=== PATIENT | female | born 1955 ===

== ENCOUNTER 2017-09-21 11:49 | Inpatient (IN) | payer SELFPAY ==
--- NOTE | 2017-09-21 12:47 | ED PDOC ---
HPI: General Adult Time Seen by Provider: 09/21/17 11:53 Chief Complaint (Nursing): Lower Extremity Problem/Injury History Per: Patient Additional Complaint(s): Pt. states 12 days ago she sustained a R ankle fracture and was seen in [facility] ED. She was immobilized, dc'd and instructed to f/u with Dr. Craig (code inspector) today. Pain has been worsening and she saw Dr. Craig today who advised to her to come to ED for further evaluation. Denies numbness, tingling. Past Medical History Reviewed: Historical Data, Nursing Documentation, Vital Signs Vital Signs: Last Vital Signs Temp 97.8 F 09/21/17 20:00 Pulse 69 09/21/17 20:00 Resp 18 09/21/17 20:00 BP 96/61 L 09/21/17 20:00 Pulse Ox 100 09/21/17 20:00 - Surgical History Surgical History: Appendectomy, Cholecystectomy - Family History Family History: States: No Known Family Hx - Home Medications Home Medications: Ambulatory Orders Medication Instructions Recorded No Known Home Med 09/21/17 - Allergies Allergies/Adverse Reactions: Allergies Allergy/AdvReac Type Severity Reaction Status Date / Time No Known Allergies Allergy Verified 09/21/17 12:24 Review of Systems ROS Statement: Except As Marked, All Systems Reviewed And Found Negative Physical Exam - Reviewed Nursing Documentation Reviewed: Yes Vital Signs Reviewed: Yes - Physical Exam Appears: Positive for: Well, Non-toxic, No Acute Distress Head Exam: Positive for: ATRAUMATIC, NORMAL INSPECTION, NORMOCEPHALIC Skin: Positive for: Normal Color, Warm. Negative for: Rash Eye Exam: Positive for: EOMI, Normal appearance, PERRL ENT: Positive for: Normal ENT Inspection Neck: Positive for: Normal, Painless ROM Cardiovascular/Chest: Positive for: Regular Rate, Rhythm Respiratory: Positive for: CNT, Normal Breath Sounds Gastrointestinal/Abdominal: Positive for: Normal Exam, Soft. Negative for: Tenderness Back: Positive for: Normal Inspection Extremity: Positive for: Other (RLE in posterior short leg splint which clean and intact; cap refill < 2 seconds; distal sensation intact) Neurologic/Psych: Positive for: Alert, Oriented - Laboratory Results Result Diagrams: 09/21/17 13:15 09/21/17 13:15 - ECG ECG: Positive for: Interpreted By Me ECG Rhythm: Positive for: Sinus Bradycardia. Negative for: ST/T Changes Rate: 58 O2 Sat by Pulse Oximetry: 99 - Radiology X-Ray: Interpreted by Me (CXR) X-Ray Interpretation: No Acute Disease - Progress ED Course And Treament: Labs, chest/ankle x-rays, ekg ordered. Pt. kept NPO. Pt evaluated by podiatry resident in ED. Case d/w Dr. Rahman, FP resident, and arrangements made for admission. Disposition - Clinical Impression Clinical Impression: Ankle fracture - Patient ED Disposition Is Patient to be Admitted: Yes - Disposition Disposition Time: 12:52 Condition: STABLE
--- NOTE | 2017-09-21 12:58 | CP.PCM.CON ---
History of Present Illness - History of Present Illness History of Present Illness: Podiatry Consult Note- Dr. Craig 61 y.o female with PMH of bilaterally hips osteopenia presents to the ED for right ankle fracture. Patient reports 12 days ago she walked out, slipped on ice , and fell. She reports twisting her ankle. Ambulance was called and she was bought to [facility] where X-rays were taken and she was told she had an right ankle fracture. In the ED, ankle reduction was attempted twice. Patient was placed in posterior splint and told to follow up in [place] clinic. Patient reports today pain 10/10 and describes the pain as a throbbing, stabbing pain to the ankle. She reports nothing to eat or drink since 7am this morning. She denies nausea, fever, shortness of breath, vomiting, or chills. PMH: osteopenia of hips PSH: appendectomy, cholecystectomy ALL: NKDA MEDS: none SH: denies smoking, drinking or illicit drug use FH: denies Interpretation [id number] Past Patient History - SURGICAL HISTORY Hx Appendectomy: Yes Hx Cholecystectomy: Yes Meds Allergies/Adverse Reactions: Allergies Allergy/AdvReac Type Severity Reaction Status Date / Time No Known Allergies Allergy Verified 09/21/17 12:24 Physical Exam - Constitutional Appears: Well, Non-toxic, No Acute Distress - Extremities Exam Additional comments: Vasc: DP and PT 2/4 bilaterally, CFT < 3 seconds x10 digits, moderate non pitting edema to the right ankle Ortho: severe pain with palpation to the medial and lateral malleolus, no pain with calf squeeze bilaterally, patient able to wiggle toes, patient unable to move ankle secondary to guarding Neuro: protective and gross sensation intact Derm: no open lesions noted to the right ankle, ecchymosis noted to the lateral and medial ankle, more medially, no blisters noted, no clinical signs of infection - Neurological Exam Neurological exam: Alert, Oriented x3 - Psychiatric Exam Psychiatric exam: Normal Affect, Normal Mood Results - Vital Signs Recent Vital Signs: Last Vital Signs Temp 97 F L 09/21/17 12:24 Pulse 71 09/21/17 12:24 Resp 18 09/21/17 12:24 BP 111/76 09/21/17 12:24 Pulse Ox 99 09/21/17 12:49 - Labs Result Diagrams: 09/21/17 13:15 09/21/17 13:15 Assessment & Plan - Assessment and Plan (Free Text) Assessment: 61 y.o female with PMHx of bilateral hips osteopenia presents to the ED for painful closed right displaced trimalleolar ankle fracture. Plan: Patient examined and evaluated Discussed plan in detail with attending Dr. Craig Charts, labs, vitals reviewed X-rays and CT from [place] X-rays taken on 09/21/17 reviewed- displaced trimalleolar fracture of right ankle Patient's requires surgical intervention at time NPO status confirmed, NPO status ordered All questions/concerns addressed No guarantees were made Pt understands all risks, benefits and complications of procedure OR notified, patient to go to the OR at 3pm pending medical clearance Please provided medical clearance- thank you EKG, Chest X-rays, CMP Recommends patient to be admitted for observation overnight Thank you for the consult. Podiatry will continue to follow
[2017-09-21 13:41] LABS: BASO % 0.5 % (0.0-2.0); EOS # 0.1 K/uL (0.0-0.7); EOS % 2.3 % (0.0-4.0); HEMOGLOBIN 13.9 g/dL (12.0-16.0); LYMPH # 1.9 K/uL (1.0-4.3); LYMPH % 37.4 % (20.0-40.0); MEAN CORPUSCULAR HEMOGLOBIN 31.3 pg (27.0-31.0); MEAN PLATELET VOLUME 10.2 fl (7.2-11.7); MONO # 0.4 K/uL (0.0-0.8); MONO % 8.6 % (0.0-10.0); NEUT # 2.6 K/uL (1.8-7.0); NEUT % 51.2 % (50.0-75.0); NRBC % 0.2 % (0.0-0.0); RBC 4.44 Mil/uL (3.80-5.20); RED CELL DISTRIBUTION WIDTH 12.5 % (11.5-14.5); WHITE BLOOD COUNT 5.1 K/uL (4.8-10.8)
[2017-09-21 13:43] LABS: ALB/GLOB RATIO 1.1 (1.0-2.1); ALBUMIN 4.4 g/dL (3.5-5.0); CALCIUM 9.8 mg/dL (8.4-10.2); GFR AFRICAN-AMERICAN > 60; GFR NON-AFRICAN AMERICAN > 60
[2017-09-21 13:46] LABS: INR 1.1 (0.9-1.2); PARTIAL THROMBOPLASTIN TIME 32.8 Seconds (25.6-37.1); PROTHROMBIN TIME 11.7 Seconds (9.8-13.1)
[2017-09-21 14:03] LABS: ALT/SGPT 208 U/L (9-52); AST/SGOT 68 U/L (14-36); BLOOD UREA NITROGEN 17 mg/dl (7-17)
--- NOTE | 2017-09-21 14:04 | CP.PCM.CON ---
Past Patient History - Past Social History Smoking Status: Never Smoked - PSYCHIATRIC Hx Substance Use: No - SURGICAL HISTORY Hx Appendectomy: Yes Hx Cholecystectomy: Yes Meds Allergies/Adverse Reactions: Allergies Allergy/AdvReac Type Severity Reaction Status Date / Time No Known Allergies Allergy Verified 09/21/17 12:24 Results - Vital Signs Recent Vital Signs: Last Vital Signs Temp 97 F L 09/21/17 12:24 Pulse 71 09/21/17 12:24 Resp 18 09/21/17 12:24 BP 111/76 09/21/17 12:24 Pulse Ox 99 09/21/17 12:52 - Labs Result Diagrams: 09/21/17 13:15 09/21/17 13:15 Labs: Laboratory Results - last 24 hr 09/21/17 09/21/17 09/21/17 13:15 13:15 13:15 WBC 5.1 RBC 4.44 Hgb 13.9 Hct 40.8 MCV 92.0 MCH 31.3 H MCHC 34.0 RDW 12.5 Plt Count 223 MPV 10.2 Neut % (Auto) 51.2 Lymph % (Auto) 37.4 [place] % (Auto) 8.6 Eos % (Auto) 2.3 Baso % (Auto) 0.5 Neut # (Auto) 2.6 Lymph # (Auto) 1.9 [place] # (Auto) 0.4 Eos # (Auto) 0.1 Baso # (Auto) 0.0 PT INR APTT Sodium 144 Potassium 4.8 Chloride 104 Carbon Dioxide 25 Anion Gap 20 BUN 17 Creatinine 0.6 L Est GFR ( Amer) > 60 Est GFR (Non-Af Amer) > 60 Random Glucose 95 Calcium 9.8 Total Bilirubin 1.1 AST 68 H ALT 208 H Alkaline Phosphatase 127 H Total Protein 8.2 Albumin 4.4 Globulin 3.8 Albumin/Globulin Ratio 1.1 Blood Type Cancelled Antibody Screen Cancelled BBK History Checked Cancelled 09/21/17 13:15 WBC RBC Hgb Hct MCV MCH MCHC RDW Plt Count MPV Neut % (Auto) Lymph % (Auto) [place] % (Auto) Eos % (Auto) Baso % (Auto) Neut # (Auto) Lymph # (Auto) [place] # (Auto) Eos # (Auto) Baso # (Auto) PT 11.7 INR 1.1 APTT 32.8 Sodium Potassium Chloride Carbon Dioxide Anion Gap BUN Creatinine Est GFR ( Amer) Est GFR (Non-Af Amer) Random Glucose Calcium Total Bilirubin AST ALT Alkaline Phosphatase Total Protein Albumin Globulin Albumin/Globulin Ratio Blood Type Antibody Screen BBK History Checked Assessment & Plan - Assessment and Plan (Free Text) Plan: Patient is medically optimized for surgery
[2017-09-21 14:44] LABS: SQUAMOUS EPITHIAL 2 /hpf (0-5); URINE BILIRUBIN NEGATIVE (NEGATIVE); URINE BLOOD NEGATIVE (NEGATIVE); URINE CLARITY SLIGHTY-CLOUDY (Clear); URINE COLOR YELLOW (YELLOW); URINE GLUCOSE (UA) NEG (Normal); URINE LEUKOCYTE ESTERASE TRACE Leu/uL (Negative); URINE PROTEIN NEGATIVE (NEGATIVE); URINE UROBILINOGEN 0.2-1.0 mg/dL (0.2-1.0)
[2017-09-21] MEDS ORDERED: ceFAZolin IV 2 gm in Dextrose 2 GM/50 ML BAG IVPB ONE (15:06)
[2017-09-21] MEDS ORDERED: Bupivacaine 0.5% Inj(30mL) ONE ×2 (15:06→15:33)
[2017-09-21] MEDS ORDERED: Lidocaine 4% (Laryng-O-Jet) Kit MM ONE (15:27)
[2017-09-21] MEDS ORDERED: Midazolam 2 MG/2 ML VIAL ONE (15:27)
[2017-09-21] MEDS ORDERED: Succinylcholine 200 mg/10 ml Inj IV ONE (15:27)
[2017-09-21] MEDS ORDERED: Propofol 10 mg/ml Inj (20 ML) ONE (15:27)
--- NOTE | 2017-09-21 15:27 | CP.PCM.HP ---
History of Present Illness - History of Present Illness History of Present Illness: 61 year old female with PMHx of osteopenia and gastritis seen in the ED complaining of right ankle pain. Patient states that twelve days ago she slipped on a patch of ice and fell, causing immediate pain to her right ankle with inability to weight bear. She went to [facility] where she was told she had a right ankle fracture. Patient presents to ED today complaining of continued pain to the area. Says she has been taking Motrin regularly and that it has not been helping. She is seen to be wearing a posterior splint that is C/D/I. She denies any weight bearing on the injured leg and her posterior splint in C/D/I. She denies any further pedal complaints at this time. Denies any recent N/V/F/C/CP/SOB/D/posterior calf pain when squeezed. Patient states that she has not eaten anything since last night and only had a small cup of coffee around 7 am this morning PMD: No family provider PMHx: Osteopenia, Gastritis Meds: Denies ALL: NKDA Psurghx: Appendectomy, cholecystectomy FamilyHx: HTN (mother) Social: Denies ETOH, Denies Tobacco use, Denies illicit drug use Present on Admission - Present on Admission Any Indicators Present on Admission: No Review of Systems - Review of Systems Review of Systems: ROS as per HPI. All other systems reviewed and found to be negative - Constitutional Constitutional: absent: Anorexia, Chills, Daytime Sleepiness, Excessive Sweating , Fatigue, Fever, Frequent Falls, Headache, Increased Appetite, Lethargy, Malaise, Night Sweats, Snoring, Sleep Apnea, Weight Gain, Weight Loss, Weakness , Other - EENT Eyes: absent: Blind Spots, Blurred Vision, Change in Vision, Decreased Night Vision, Diplopia, Discharge, Dry Eye, Exophthalmos, Floaters, Irritation, Itchy Eyes, Loss of Peripheral Vision, Pain, Photophobia, Requires Corrective Lenses, Sees Flashes, Spots in Vision, Tunnel Vision, Other Visual Disturbances, Loss of Vision, Other Ears: absent: Decreased Hearing, Ear Discharge, Ear Pain, Tinnitus, Abnormal Hearing, Disequilibrium, Dizziness, Other Nose/Mouth/Throat: absent: Epistaxis, Nasal Congestion, Nasal Discharge, Nasal Obstruction, Nasal Trauma, Nose Pain, Post Nasal Drip, Sinus Pain, Sinus Pressure, Bleeding Gums, Change in Voice, Dental Pain, Dry Mouth, Dysphagia, Halitosis, Hoarsness, Lip Swelling, Mouth Lesions, Mouth Pain, Odynophagia, Sore Throat, Throat Swelling, Tongue Swelling, Facial Pain, Neck Pain, Neck Mass , Other - Cardiovascular Cardiovascular: absent: Acrocyanosis, Chest Pain, Chest Pain at Rest, Chest Pain with Activity, Claudication, Diaphoresis, Dyspnea, Dyspnea on Exertion, Edema, Irregular Heart Rhythm, Pain Radiating to Arm/Neck/Jaw, Leg Edema, Leg Ulcers, Lightheadedness, Orthopnea, Palpitations, Paroxysmal Nocturnal Dyspnea, Pedal Edema, Radiating Pain, Rapid Heart Rate, Slow Heart Rate, Syncope, Other - Respiratory Respiratory: absent: Cough, Dyspnea, Hemoptysis, Dyspnea on Exertion, Wheezing, Snoring, Stridor, Pain on Inspiration, Chest Congestion, Excessive Mucous Production, Change in Mucous Color, Pain with Coughing, Other - Gastrointestinal Gastrointestinal: absent: Abdominal Pain, Belching, Bloating, Change in Bowel Habits, Change in Stool Character, Coffee Ground Emesis, Constipation, Cramping , Diarrhea, Dyspepsia, Dysphagia, Early Satiety, Excessive Flatus, Fecal Incontinence, Heartburn, Hematemesis, Hematochezia, Loose Stools, Melena, Nausea , Odynophagia, Temesmus, Vomiting, Other - Musculoskeletal Additional comments: POP to right ankle. Decreased range of motion secondary to guarding, right ankle - Neurological Neurological: absent: As Per HPI, Abnormal Gait, Abnormal Hearing, Abnormal Movements, Abnormal Speech, Behavioral Changes, Burning Sensations, Confusion, Convulsions, Disequilibrium, Dizziness, Numbness, Focal Weakness, Frequent Falls , Headaches, Lack of Coordination, Loss of Vision, Memory Loss, Paresthesias, Radicular Pain, Restless Legs, Sensory Deficit, Syncope, Tingling, Tremor, Vertigo, Weakness, Other Visual Disturbances, Other Past Patient History - Infectious Disease Hx of Infectious Diseases: None - Past Medical History & Family History Past Medical History?: No - Past Social History Smoking Status: Never Smoked - CARDIAC Hx Cardiac Disorders: No - PULMONARY Hx Respiratory Disorders: No - NEUROLOGICAL Hx Neurological Disorder: No - HEENT Hx HEENT Problems: No - RENAL Hx Chronic Kidney Disease: No Hx Kidney Stones: No - ENDOCRINE/METABOLIC Hx Endocrine Disorders: No - HEMATOLOGICAL/ONCOLOGICAL Hx Blood Disorders: No - INTEGUMENTARY Hx Dermatological Problems: No - MUSCULOSKELETAL/RHEUMATOLOGICAL Hx Musculoskeletal Disorders: No - GASTROINTESTINAL Hx Gastrointestinal Disorders: No - GENITOURINARY/GYNECOLOGICAL Hx Genitourinary Disorders: No - PSYCHIATRIC Hx Psychophysiologic Disorder: No Hx Emotional Abuse: No Hx Physical Abuse: No Hx Substance Use: No - SURGICAL HISTORY Hx Surgeries: No Hx Appendectomy: Yes Hx Cholecystectomy: Yes Meds Allergies/Adverse Reactions: Allergies Allergy/AdvReac Type Severity Reaction Status Date / Time No Known Allergies Allergy Verified 09/21/17 12:24 Physical Exam - Constitutional Appears: Well, Non-toxic, No Acute Distress - Head Exam Head Exam: ATRAUMATIC, NORMOCEPHALIC - Eye Exam Eye Exam: EOMI, PERRL Pupil Exam: PERRL - ENT Exam ENT Exam: Mucous Membranes Moist - Neck Exam Neck exam: Positive for: Full Rom, Normal Inspection - Respiratory Exam Respiratory Exam: Clear to Auscultation Bilateral, NORMAL BREATHING PATTERN - Cardiovascular Exam Cardiovascular Exam: REGULAR RHYTHM - GI/Abdominal Exam GI & Abdominal Exam: absent: Distended, Firm, Guarding, Rigid, Tenderness - Rectal Exam Rectal Exam: Deferred - Extremities Exam Additional comments: RLE: Trimalleolar fracture of right ankle Results - Vital Signs Recent Vital Signs: Last Vital Signs Temp 98 F 09/21/17 14:06 Pulse 75 09/21/17 14:17 Resp 15 09/21/17 14:06 BP 118/72 09/21/17 14:06 Pulse Ox 99 09/21/17 14:06 - Labs Result Diagrams: 09/21/17 13:15 09/21/17 13:15 Labs: Laboratory Results - last 24 hr 09/21/17 09/21/17 09/21/17 13:15 13:15 13:15 WBC 5.1 RBC 4.44 Hgb 13.9 Hct 40.8 MCV 92.0 MCH 31.3 H MCHC 34.0 RDW 12.5 Plt Count 223 MPV 10.2 Neut % (Auto) 51.2 Lymph % (Auto) 37.4 [place] % (Auto) 8.6 Eos % (Auto) 2.3 Baso % (Auto) 0.5 Neut # (Auto) 2.6 Lymph # (Auto) 1.9 [place] # (Auto) 0.4 Eos # (Auto) 0.1 Baso # (Auto) 0.0 PT INR APTT Sodium 144 Potassium 4.8 Chloride 104 Carbon Dioxide 25 Anion Gap 20 BUN 17 Creatinine 0.6 L Est GFR ( Amer) > 60 Est GFR (Non-Af Amer) > 60 Random Glucose 95 Calcium 9.8 Total Bilirubin 1.1 AST 68 H ALT 208 H Alkaline Phosphatase 127 H Total Protein 8.2 Albumin 4.4 Globulin 3.8 Albumin/Globulin Ratio 1.1 Urine Color Urine Clarity Urine pH Ur Specific [place] Urine Protein Urine Glucose (UA) Urine Ketones Urine Blood Urine Nitrate Urine Bilirubin Urine Urobilinogen Ur Leukocyte Esterase Urine RBC (Auto) Urine Microscopic WBC Ur Squamous Epith Cells Blood Type Cancelled Antibody Screen Cancelled BBK History Checked Cancelled 09/21/17 09/21/17 09/21/17 13:15 14:15 14:25 WBC RBC Hgb Hct MCV MCH MCHC RDW Plt Count MPV Neut % (Auto) Lymph % (Auto) [place] % (Auto) Eos % (Auto) Baso % (Auto) Neut # (Auto) Lymph # (Auto) [place] # (Auto) Eos # (Auto) Baso # (Auto) PT 11.7 INR 1.1 APTT 32.8 Sodium Potassium Chloride Carbon Dioxide Anion Gap BUN Creatinine Est GFR ( Amer) Est GFR (Non-Af Amer) Random Glucose Calcium Total Bilirubin AST ALT Alkaline Phosphatase Total Protein Albumin Globulin Albumin/Globulin Ratio Urine Color Yellow Urine Clarity Slighty-cloudy Urine pH 5.0 Ur Specific [place] 1.019 Urine Protein Negative Urine Glucose (UA) Neg Urine Ketones Negative Urine Blood Negative Urine Nitrate Negative Urine Bilirubin Negative Urine Urobilinogen 0.2-1.0 Ur Leukocyte Esterase Trace Urine RBC (Auto) 5 H Urine Microscopic WBC 2 Ur Squamous Epith Cells 2 Blood Type Antibody Screen BBK History Checked No verified bt Assessment & Plan - Assessment and Plan (Free Text) Assessment: 61 year old female with PMHx Osteopenia and Gastritis seen in ED with right ankle trimalleolar fracture Plan: 1) Right ankle fracture - Ankle xray: Trimalleolar fracture of right ankle - Chest xray: No acute infiltrates noted - EKG: Sinus bradycardia, otherwise normal EKG - Podiatry consult appreciated: Patient for ORIF this afternoon with attending Dr. Craig for R trimalleolar fracture - Vitals and labs stable - NPO diet 2) Osteopenia - Chronic - Stable - No at home medication - Monitor 3) Gastritis - Chronic - Stable - No at home medication - Monitor - Date & Time Date: 09/21/17 Time: 13:25
[2017-09-21] MEDS ORDERED: Ropivacaine 0.5% 30ML IV ONE (15:33)
[2017-09-21] MEDS ORDERED: Lactated Ringer's 1,000 ML IV ONE ×3 (15:35→20:30)
[2017-09-21] MEDS ORDERED: Sevoflurane - Inhalation Anesthetic Liq (250 ml) ONE (16:13)
[2017-09-21] MEDS ORDERED: Dexamethasone 4 mg/1 ml ONE (16:18)
--- NOTE | 2017-09-21 16:40 | RAD ---
PROCEDURE: Right Ankle Radiographs. Tissue swelling. HISTORY: Ankle fracture COMPARISON: No prior FINDINGS: BONES: Current study reveals fracture dislocation of the distal medial posterior and lateral malleoli with disruption of the ankle mortise. Surrounding soft tissue swelling JOINTS: Normal. No osteoarthritis. Ankle mortise maintained. Talar dome intact SOFT TISSUES: As above. OTHER FINDINGS: None. IMPRESSION: Fracture dislocation distal right posterior medial and lateral malleoli with disruption of the ankle mortise.
--- NOTE | 2017-09-21 16:44 | RAD ---
HISTORY: clearance COMPARISON: No prior. TECHNIQUE: Chest PA and lateral FINDINGS: LUNGS: There is a vague nodular density right lung base which may represent confluence of shadow artifact however area of localized atelectasis, scarring or parenchymal nodule not excluded. Recommend followup nonemergent CT scan of the chest. PLEURA: No significant pleural effusion identified. No pneumothorax apparent. CARDIOVASCULAR: Normal. OSSEOUS STRUCTURES: Mild multilevel degenerative spondylosis of the thoracic spine. . VISUALIZED UPPER ABDOMEN: Normal. OTHER FINDINGS: None. IMPRESSION: There is a vague nodular density right lung base which may represent confluence of shadow artifact however area of localized atelectasis, scarring or parenchymal nodule not excluded. Recommend followup nonemergent CT scan of the chest. Note that this report was placed in PA review folder for followup.
[2017-09-21] MEDS ORDERED: Labetalol 5mg/ml (4ml) ONE (17:11)
[2017-09-21] MEDS ORDERED: Enalaprilat 2.5 MG/2 ML ONE (17:20)
[2017-09-21] MEDS ORDERED: Bupivacaine 0.5% 50 ML IJ ONE (18:45)
[2017-09-21] MEDS ORDERED: Sodium Chloride 0.9% 500 ML IV ONE (19:00)
--- NOTE | 2017-09-21 19:04 | PCM.ANESB2 ---
Popliteal Nerve Block - Popliteal Nerve Block Date of Procedure: 09/21/17 Anesthesiologist: Vineet Pre-Procedure Diagnosis: Right ankle fracture Post-Procedure Diagnosis: Same Procedure Performed: Popliteal Nerve Block Right - Procedure Popliteal Nerve Block: This procedure was explained to the patient that it is for post-operative pain management. Consent was obtained after a thorough discussion with the patient regarding the benefits and possible complications of local anesthetic block of the sciatic nerve at the popliteal level. The patient was brought to the operating room and standard monitors are applied. Time-out was held with the circulating nurse to confirm the correct surgery and the appropriate block. After applying oxygen by nasal cannula and administering IV Sedation, patient's operative leg was gently raised and supported and the groove in between the biceps femoris and vastus lateralis muscles was carefully palpated. The skin approximately 8cm above the popliteal crease was then marked. The ultrasound transducer was then applied to the posterior thigh approximately 8cm above the popliteal crease in the transverse plane and the sciatic nerve before its division was visualized lateral to the popliteal artery and in between the bicep femoris and semimembranosus/semitendinosus muscles. After identification, the lateral portion of the thigh was prepped with Betadine solution three times and Lidocaine 1% was injected subcutaneously for topical anesthesia. At this point, a # 21 gauge Stimuplex insulated 4 inch needle was inserted into pre-marked area and advanced in a perpendicular direction. The needle was inserted above the ultrasound transducer in-plane towards the sciatic nerve in a [id number] direction. Needle advancement was performed carefully under direct ultrasound visualization. Nerve stimulator was used and dorsiflexion of the __right___ foot was elicited at a current of ___0.4__ MA. After repeated negative aspiration, __20___cc of __.5___ % bupivacaine was injected. Under ultrasound guidance the local anesthetics were observed surrounding sciatic nerve . The needle was removed intact and sterile dressing was applied. The patient tolerated the popliteal nerve block well with stable vital signs and was subsequently prepared for the surgery.
--- NOTE | 2017-09-21 19:04 | PCM.SURG1 ---
Surgeon's Initial Post Op Note - Surgeon's Notes Surgeon: Dr. Craig [employer] Secretary: Dr. Car, Dr. Elaine, Dr. Jones Type of Anesthesia: General Endo Anesthesia Administered By: Dr. Manley Pre-Operative Diagnosis: right ankle displaced trimalleolar fracture Operative Findings: see dictations; 2-0 vicryl, 4-0 vicryl, 4-0 nylon; internal fixation with screws and plate, .5cc of DBM, post operative injectables 10 cc of .5% marcaine plain Post-Operative Diagnosis: same Operation Performed: open reduction internal fixation of right ankle displaced trimalleolar fracture Specimen/Specimens Removed: none Estimated Blood Loss: EBL {In ML}: 20 Blood Products Given: N/A Drains Used: No Drains Post-Op Condition: Good Date of Surgery/Procedure: 09/21/17 Time of Surgery/Procedure: 15:00
[2017-09-21] MEDS ORDERED: HYDROmorphone 0.5 mg/0.5 ml ISec IVP PRN ×2 (19:05→19:13)
--- NOTE | 2017-09-21 19:05 | PCM.ANESB3 ---
Femoral Nerve Block - Femoral Nerve Block Date of Procedure: 09/21/17 Anesthesiologist: Vineet Pre-Procedure Diagnosis: Right ankle fracture Post-Procedure Diagnosis: Same Procedure Performed: Femoral Nerve Block Right - Procedure Femoral Nerve Block: The procedure was explained to the patient that it is for the post-operative pain management. Consent was obtained after a thorough discussion with the patient regarding the benefits and possible complications of local anesthetic block of the femoral nerve at the inguinal crease area. The patient was brought to the operating room and standard monitors were applied. Time-out was held with the circulating nurse to confirm the correct surgery and the appropriate block. After applying oxygen by nasal cannula and administering IV Sedation, patient was placed in supine position with fully extended lower extremities and the __right groin exposed. The femoral artery was then carefully palpated. The ultrasound transducer was then applied to this area in the transverse plane and the femoral nerve was visualized lateral to the femoral artery and underneath the fascia iliaca. After thorough identification, the inguinal crease area was prepped with Betadine solution three times and 1 % Lidocaine was injected subcutaneously for topical anesthesia. At this point, a #22 gauge Stimuplex 2-inch needle was inserted immediately lateral to the femoral artery pulse at the inguinal crease and advanced perpendicularly. The needle was inserted to the ultrasound transducer in-plane towards the femoral nerve in a [id number] direction. Needle advancement was performed carefully under direct ultrasound visualization. Nerve stimulator was used and twitch of the quadriceps muscle was obtained at current of __0.4___ MA. After negative aspiration, __20___cc of __.5___% ropivacaine ____was injected. Under ultrasound guidance the local anesthetics were observed spreading below fascia iliaca and around the femoral nerve. The needle was removed intact and sterile dressing was applied. The patient had stable vital signs, was conscious and in no apparent distress. The patient tolerated the femoral nerve block well with stable vital signs and was prepared for subsequent surgery.
[2017-09-21] MEDS ORDERED: Oxycodone/Acetaminophen 5/325 mg Tab PO PRN ×2 (19:09)
--- NOTE | 2017-09-21 19:43 | CARD ---
APPROVED REPORT EKG Measurement Heart [id number] <Conclusion> Sinus bradycardia Otherwise normal ECG
[2017-09-21 22:14] LABS: HEMOGLOBIN 12.1 g/dL (12.0-16.0); MEAN CELL VOLUME 92.4 fl (81.0-99.0); MEAN CORPUSCULAR HEMOGLOBIN 30.7 pg (27.0-31.0); MEAN CORPUSCULAR HGB CONC 33.2 g/dL (33.0-37.0); RBC 3.94 Mil/uL (3.80-5.20); RED CELL DISTRIBUTION WIDTH 12.6 % (11.5-14.5); WHITE BLOOD COUNT 8.7 K/uL (4.8-10.8)
[2017-09-22] MEDS: ceFAZolin 1 GM in Sodium Chloride 0.9% 100 ML IVPB SCH ×3 (00:20→21:35)
--- NOTE | 2017-09-22 08:00 | RAD ---
PROCEDURE: Intraoperative Fluoroscopy. HISTORY: RT. ANKLE FINDINGS: Fluoroscopic assistance was provided for open reduction internal fixation of right ankle fractures. Please refer to the operative report from [facility]. 85.9 seconds of fluoroscopy time was utilized.
--- NOTE | 2017-09-22 08:06 | RAD ---
PROCEDURE: Right Ankle Radiographs. HISTORY: s/p right ankle ORIF COMPARISON: Right ankle radiographs 09/21/2017. FINDINGS: BONES: Patient is seen to be status post open reduction internal fixation under para trimalleolar fracture via a compression plate and multiple screws at the distal right ulna, 2 screws at the posterior malleolus and solitary screw transfixing the medial malleolar fracture. JOINTS: No subluxation or dislocation apparent.. No osteoarthritis. Ankle mortise maintained. Talar dome intact SOFT TISSUES: Normal. OTHER FINDINGS: None. IMPRESSION: Status post ORIF trimalleolar fracture as discussed above. Adequate reduction appears to have been achieved.
--- NOTE | 2017-09-22 09:50 | CP.PCM.PN ---
Subjective - Date & Time of Evaluation Date of Evaluation: 09/22/17 Time of Evaluation: 09:46 - Subjective Subjective: Podiatry Progress Note- Dr. Craig 61 y.o female 1 day s/p right trimalleolar fracture ORIF is seen and evaluated at bedside. Patient is seen resting comfortably in bed, in NAD, and AAOx3. Patient reports that she is doing well. She denies acute overnight events. She reports unable to wiggle her toes. She complains of little pain to the right lower extremity. She denies nausea, fever, shortness of breath, chest pain, chills or fever. She denies calf tenderness or pain. Objective - Vital Signs/Intake and Output Vital Signs (last 24 hours): Temp Pulse Resp BP Pulse Ox 97.3 F L 63 19 94/58 L 97 09/22/17 07:39 09/22/17 07:39 09/22/17 07:39 09/22/17 07:39 09/22/17 07:39 Intake and Output: 09/22/17 09/22/17 06:59 18:59 Intake Total 750 Balance 750 - Medications Medications: Current Medications Acetaminophen (Tylenol 325mg Tab) 325 mg PO Q4 PRN PRN Reason: Pain, Mild (1-3) Enoxaparin Sodium (Lovenox) 40 mg SC DAILY JUSTIN PRN Reason: Protocol Cefazolin Sodium 1 gm/ Sodium (Chloride) 100 mls @ 100 mls/hr IVPB Q12 JUSTIN PRN Reason: Protocol Last Admin: 09/22/17 00:20 Dose: 100 mls/hr Oxycodone/Acetaminophen (Percocet 5/325 Mg Tab) 1 tab PO Q4 PRN PRN Reason: Pain, moderate (4-7) Stop: 09/24/17 19:10 Oxycodone/Acetaminophen (Percocet 5/325 Mg Tab) 2 tab PO Q4 PRN PRN Reason: Pain, severe (8-10) Stop: 09/24/17 19:10 - Labs Labs: 09/21/17 21:40 09/21/17 13:15 PT 11.7 Seconds (9.8-13.1) 09/21/17 13:15 INR 1.1 (0.9-1.2) 09/21/17 13:15 APTT 32.8 Seconds (25.6-37.1) 09/21/17 13:15 - Constitutional Appears: Well, Non-toxic, No Acute Distress - Extremities Exam Extremities Exam: absent: Calf Tenderness Additional comments: Dressing to the right lower extremity is clean, dry, and intact. No strike- through noted to dressing Patient unable to wiggle toes secondary to femoral and popliteal block Temperature gradient WNL CFT < 3 seconds to the digits - Neurological Exam Neurological Exam: Alert, Awake, Oriented x3 - Psychiatric Exam Psychiatric exam: Normal Affect, Normal Mood Assessment and Plan - Assessment and Plan (Free Text) Assessment: 61 y.o female 1 day s/p right trimalleolar fracture ORIF Plan: Patient examined and evaluated Discussed plan in detail with attending Dr. Craig Charts, labs, vitals reviewed PT eval and treatment appreciated- Pt to be NWB to the right LE with crutches Patient stable per podiatry standpoint Upon discharge, -Patient will follow up in podiatry clinic Thursday with Dr. Craig -Patient will need to call for an appointment -Keep the posterior splint clean, dry, and intact. Do not get wet. -Nonweightbearing to the right leg. Use crutches to ambulate -Rx Keflex, take as instructed -Rx Percocet 5/325 for moderate-severe pain
--- NOTE | 2017-09-22 10:15 | CP.PCM.DIS ---
Provider - Provider Date of Admission: 09/21/17 13:01 Attending physician: Mary Syed MD Primary care physician: No Family Provider Consults: Podiatry - Dr. Craig Time Spent in preparation of Discharge (in minutes): 45 Diagnosis - Discharge Diagnosis (1) Status post ORIF of fracture of ankle Status: Acute Comment: 61F with ORIF for trimalleolar fracture by podiatry on 09/22/17 without complication. Pain controlled. Cleared for DC home by PT and Podiatry Hospital Course - Lab Results Lab Results: Most Recent Lab Values WBC 8.7 K/uL (4.8-10.8) D 09/21/17 21:40 RBC 3.94 Mil/uL (3.80-5.20) 09/21/17 21:40 Hgb 12.1 g/dL (12.0-16.0) 09/21/17 21:40 Hct 36.4 % (34.0-47.0) 09/21/17 21:40 MCV 92.4 fl (81.0-99.0) 09/21/17 21:40 MCH 30.7 pg (27.0-31.0) 09/21/17 21:40 MCHC 33.2 g/dL (33.0-37.0) 09/21/17 21:40 RDW 12.6 % (11.5-14.5) 09/21/17 21:40 Plt Count 173 K/uL (130-400) 09/21/17 21:40 MPV 10.2 fl (7.2-11.7) 09/21/17 13:15 Neut % (Auto) 51.2 % (50.0-75.0) 09/21/17 13:15 Lymph % (Auto) 37.4 % (20.0-40.0) 09/21/17 13:15 [place] % (Auto) 8.6 % (0.0-10.0) 09/21/17 13:15 Eos % (Auto) 2.3 % (0.0-4.0) 09/21/17 13:15 Baso % (Auto) 0.5 % (0.0-2.0) 09/21/17 13:15 Neut # (Auto) 2.6 K/uL (1.8-7.0) 09/21/17 13:15 Lymph # (Auto) 1.9 K/uL (1.0-4.3) 09/21/17 13:15 [place] # (Auto) 0.4 K/uL (0.0-0.8) 09/21/17 13:15 Eos # (Auto) 0.1 K/uL (0.0-0.7) 09/21/17 13:15 Baso # (Auto) 0.0 K/uL (0.0-0.2) 09/21/17 13:15 PT 11.7 Seconds (9.8-13.1) 09/21/17 13:15 INR 1.1 (0.9-1.2) 09/21/17 13:15 APTT 32.8 Seconds (25.6-37.1) 09/21/17 13:15 Sodium 144 mmol/l (132-148) 09/21/17 13:15 Potassium 4.8 MMOL/L (3.6-5.0) 09/21/17 13:15 Chloride 104 mmol/L (98-107) 09/21/17 13:15 Carbon Dioxide 25 mmol/L (22-30) 09/21/17 13:15 Anion Gap 20 (10-20) 09/21/17 13:15 BUN 17 mg/dl (7-17) 09/21/17 13:15 Creatinine 0.6 mg/dl (0.7-1.2) L 09/21/17 13:15 Est GFR ( Amer) > 60 09/21/17 13:15 Est GFR (Non-Af Amer) > 60 09/21/17 13:15 Random Glucose 95 mg/dL (65-105) 09/21/17 13:15 Calcium 9.8 mg/dL (8.4-10.2) 09/21/17 13:15 Total Bilirubin 1.1 mg/dl (0.2-1.3) 09/21/17 13:15 AST 68 U/L (14-36) H 09/21/17 13:15 ALT 208 U/L (9-52) H 09/21/17 13:15 Alkaline Phosphatase 127 U/L (38-126) H 09/21/17 13:15 Total Protein 8.2 G/DL (6.3-8.2) 09/21/17 13:15 Albumin 4.4 g/dL (3.5-5.0) 09/21/17 13:15 Globulin 3.8 gm/dL (2.2-3.9) 09/21/17 13:15 Albumin/Globulin Ratio 1.1 (1.0-2.1) 09/21/17 13:15 Urine Color Yellow (YELLOW) 09/21/17 14:25 Urine Clarity Slighty-cloudy (Clear) 09/21/17 14:25 Urine pH 5.0 (5.0-8.0) 09/21/17 14:25 Ur Specific [place] 1.019 (1.003-1.030) 09/21/17 14:25 Urine Protein Negative mg/dL (NEGATIVE) 09/21/17 14:25 Urine Glucose (UA) Neg mg/dL (Normal) 09/21/17 14:25 Urine Ketones Negative mg/dL (NEGATIVE) 09/21/17 14:25 Urine Blood Negative (NEGATIVE) 09/21/17 14:25 Urine Nitrate Negative (NEGATIVE) 09/21/17 14:25 Urine Bilirubin Negative (NEGATIVE) 09/21/17 14:25 Urine Urobilinogen 0.2-1.0 mg/dL (0.2-1.0) 09/21/17 14:25 Ur Leukocyte Esterase Trace Oz/uL (Negative) 09/21/17 14:25 Urine RBC (Auto) 5 /hpf (0-3) H 09/21/17 14:25 Urine Microscopic WBC 2 /hpf (0-5) 09/21/17 14:25 Ur Squamous Epith Cells 2 /hpf (0-5) 09/21/17 14:25 Blood Type A POSITIVE 09/21/17 14:15 Antibody Screen Negative 09/21/17 14:15 BBK History Checked No verified bt 09/21/17 14:15 - Hospital Course Hospital Course: 61F with PMH osteopenia, chronic gastritis presented to ED on 09/21/17 complaining of trimalleolar ankle fracture x 12 days, diagnosed in [facility] ED. Ankle xray performed at [facility] confirmed diagnosis. Podiatry was consulted (Dr. Craig) and patient was brought to OR for ORIF of fracture sites without incident and given one dose of Ancef 1 g preop. Patient was given popliteal block, femoral block and saphenous block post op. Pain management with Percocet and Dilaudid. Given Senekot and Miralax for post-operative constipation. Patient for DC today per Podiatry and PT. Patient will follow up with Podiatry in Clinic on Thursday 09/28. llamar a cirugano para hacer cristhian dentro 7-10 hernandez Tienes mervat cristhian con la clinica de Family Medicine 09/29/17 al 3:20 pm [place] - Date & Time of H&P Date of H&P: 09/24/17 Time of H&P: 09:50 Discharge Exam - Head Exam Head Exam: ATRAUMATIC, NORMAL INSPECTION, NORMOCEPHALIC - Eye Exam Eye Exam: EOMI, PERRL Pupil Exam: PERRL - ENT Exam ENT Exam: Mucous Membranes Moist - Respiratory Exam Respiratory Exam: NORMAL BREATHING PATTERN, UNREMARKABLE - Cardiovascular Exam Cardiovascular Exam: REGULAR RHYTHM - GI/Abdominal Exam GI & Abdominal Exam: absent: Distended, Firm, Guarding, Rigid, Tenderness - Rectal Exam Rectal Exam: Deferred - Neurological Exam Neurological exam: Alert, Oriented x3 - Psychiatric Exam Psychiatric exam: Normal Affect, Normal Mood - Skin Skin Exam: Intact, Normal Color, Warm Discharge Plan - Follow Up Plan Condition: STABLE Disposition: HOME/ ROUTINE Instructions: Ankle Fracture (DC), Open Reduction and Internal Fixation Surgery (DC) Additional Instructions: llamar a cirugano para hacer cristhian dentro 7-10 hernandez Referrals: Broderick Craig DPM [Staff Provider] - [facility] [Outside] - 09/29/17 3:20 pm
[2017-09-22] MEDS: Enoxaparin 40 mg Syringe SC SCH (10:49)
--- NOTE | 2017-09-22 17:53 | CP.PCM.PN ---
Subjective - Date & Time of Evaluation Date of Evaluation: 09/22/17 Time of Evaluation: 17:50 - Subjective Subjective: 61 year old female with PMHx of osteopenia and gastritis seen at bedside one day s/p right ankle ORIF for trimalleolar fracture. Patient is AAO x 3 and NAD and states that she is in severe pain now that her popliteal block and femoral block have worn off, rating the pain at 10/10. Patient denies any acute overnight events. She denies any further complaints at this time. Denies any recent N/V/F/C/CP/SOB/D/posterior calf pain when squeezed. Objective - Vital Signs/Intake and Output Vital Signs (last 24 hours): Temp Pulse Resp BP Pulse Ox 98.2 F 91 H 19 117/75 97 09/22/17 15:54 09/22/17 15:54 09/22/17 15:54 09/22/17 15:54 09/22/17 15:54 Intake and Output: 09/22/17 09/22/17 06:59 18:59 Intake Total 750 Balance 750 - Medications Medications: Current Medications Acetaminophen (Tylenol 325mg Tab) 325 mg PO Q4 PRN PRN Reason: Pain, Mild (1-3) Enoxaparin Sodium (Lovenox) 40 mg SC DAILY JUSTIN PRN Reason: Protocol Last Admin: 09/22/17 10:49 Dose: 40 mg Hydromorphone HCl (Dilaudid) 0.5 mg IVP Q4 PRN PRN Reason: Pain, severe (8-10) Cefazolin Sodium 1 gm/ Sodium (Chloride) 100 mls @ 100 mls/hr IVPB Q12 JUSTIN PRN Reason: Protocol Last Admin: 09/22/17 10:46 Dose: 100 mls/hr Oxycodone/Acetaminophen (Percocet 5/325 Mg Tab) 1 tab PO Q4 PRN PRN Reason: Pain, moderate (4-7) Stop: 09/24/17 19:10 Last Admin: 09/22/17 14:08 Dose: 1 tab - Labs Labs: 09/21/17 21:40 09/21/17 13:15 PT 11.7 Seconds (9.8-13.1) 09/21/17 13:15 INR 1.1 (0.9-1.2) 09/21/17 13:15 APTT 32.8 Seconds (25.6-37.1) 09/21/17 13:15 - Constitutional Appears: Well, Non-toxic, In Acute Distress - Head Exam Head Exam: ATRAUMATIC, NORMOCEPHALIC - Eye Exam Eye Exam: EOMI, PERRL Pupil Exam: PERRL - ENT Exam ENT Exam: Mucous Membranes Moist - Respiratory Exam Respiratory Exam: Clear to Ausculation Bilateral, NORMAL BREATHING PATTERN - Cardiovascular Exam Cardiovascular Exam: REGULAR RHYTHM - GI/Abdominal Exam GI & Abdominal Exam: absent: Firm, Guarding, Rigid, Tenderness - Rectal Exam Rectal Exam: Deferred - Extremities Exam Extremities Exam: Normal Capillary Refill, Normal Inspection. absent: Calf Tenderness Additional comments: CFT to all digits on operative side < 3 seconds Skin temperature warm Patient able to wiggle all five toes Epicritic and protective sensation grossly intact - Neurological Exam Neurological Exam: Alert, Awake, Oriented x3 - Psychiatric Exam Psychiatric exam: Normal Affect, Normal Mood - Skin Skin Exam: Normal Color, Warm Assessment and Plan - Assessment and Plan (Free Text) Assessment: 61 year old female seen one day s/p ORIF of right ankle. Pt not cleared by podiatry or PT to go home until tomorrow if pain is resolved Plan: 1) Right ankle fracture- one day s/p ORIF - Per podiatry patient's pain level is too severe for her to be safely discharged home until tomorrow if it resides - Patient refused pt due to pain - reevaluation tomorrow morning - Pain management per Podiatry - Post operative xray: Normal postoperative changes - Vitals and labs stable 2) Osteopenia - Chronic - Stable - No at home medication - Monitor 3) Gastritis - Chronic - Stable - No at home medication - Monitor 4) Diet - Regular diet 5) DVT prophylaxis - Lovenox 40 mg SC daily - SCD
[2017-09-23] MEDS: Oxycodone/Acetaminophen 5/325 mg Tab PO PRN ×2 (05:58→12:25)
--- NOTE | 2017-09-23 07:58 | CP.PCM.PN ---
Subjective - Date & Time of Evaluation Date of Evaluation: 09/23/17 Time of Evaluation: 08:26 - Subjective Subjective: Podiatry Progress Note- Dr. Craig 61 y.o female 2 days s/p right trimalleolar fracture ORIF is seen and evaluated at bedside. Patient is seen resting comfortably in bed, in NAD, and AAOx3. Patient reports that today she is feeling much better. She reports intense pain last night but reports today pain is better. She rates her pain as a 6/10 and describes the pain as a throbbing pain. She points to the pain being along the medial and lateral ankle. Reports she is able to wiggle her toes and feel sensation. She denies nausea, fever, shortness of breath, chest pain, chills or fever. She denies calf tenderness or pain. Objective - Vital Signs/Intake and Output Vital Signs (last 24 hours): Temp Pulse Resp BP Pulse Ox 98.5 F 67 19 104/61 95 09/23/17 07:44 09/23/17 07:44 09/23/17 07:44 09/23/17 07:44 09/23/17 07:44 - Medications Medications: Current Medications Acetaminophen (Tylenol 325mg Tab) 325 mg PO Q4 PRN PRN Reason: Pain, Mild (1-3) Enoxaparin Sodium (Lovenox) 40 mg SC DAILY JUSTIN PRN Reason: Protocol Last Admin: 09/22/17 10:49 Dose: 40 mg Hydromorphone HCl (Dilaudid) 0.5 mg IVP Q4 PRN PRN Reason: Pain, severe (8-10) Oxycodone/Acetaminophen (Percocet 5/325 Mg Tab) 2 tab PO Q4 PRN PRN Reason: Pain, moderate (4-7) Stop: 09/24/17 19:10 Last Admin: 09/23/17 05:58 Dose: 2 tab - Labs Labs: 09/21/17 21:40 09/21/17 13:15 PT 11.7 Seconds (9.8-13.1) 09/21/17 13:15 INR 1.1 (0.9-1.2) 09/21/17 13:15 APTT 32.8 Seconds (25.6-37.1) 09/21/17 13:15 - Constitutional Appears: Well, Non-toxic, No Acute Distress - Extremities Exam Extremities Exam: absent: Calf Tenderness Additional comments: Dressing to the right lower extremity is clean, dry, and intact. No strike- through noted to dressing Patient able to wiggle toes and able to feel sensation with touch Gross and protective sensation intact Temperature gradient WNL CFT < 3 seconds to the digits, color WNL No calf pain or tenderness with calf squeeze Pain with palpation along lateral distal fibular and distal tibial - Neurological Exam Neurological Exam: Alert, Awake, Oriented x3 - Psychiatric Exam Psychiatric exam: Normal Affect, Normal Mood Assessment and Plan - Assessment and Plan (Free Text) Assessment: 61 y.o female 2 days s/p right trimalleolar fracture ORIF Plan: Patient examined and evaluated Discussed plan in detail with attending Dr. Craig Charts, labs, vitals reviewed PT eval and treatment appreciated- Pt to be NWB to the right LE with crutches Patient stable per podiatry standpoint for discharge Continue to ice and elevate Upon discharge, -Patient will follow up in podiatry clinic Thursday with Dr. Craig -Patient will need to call for an appointment -Keep the posterior splint clean, dry, and intact. Do not get wet. -Educated RICE protocol -Nonweightbearing to the right leg. Use crutches to ambulate -Rx Keflex, take as instructed -Rx Percocet 5/325 for moderate-severe pain -Instructed to take baby aspirin 81mg for 5 days -Patient reports understanding
[2017-09-23] MEDS: Enoxaparin 40 mg Syringe SC SCH (10:01)
--- NOTE | 2017-09-23 12:17 | CP.PCM.PN ---
Subjective - Date & Time of Evaluation Date of Evaluation: 09/23/17 Time of Evaluation: 07:10 - Subjective Subjective: Pt seen and evaluated at bedside this am; POD 2 after right ankle ORIF for trimalleolar fracture. Reports that last night she had severe pain and was unable to work with PT. Overnight, pain was more controlled with pain medication. Denies chest pain, difficulty breathing, abdominal pain, GI upset, calf/leg pain. Objective - Vital Signs/Intake and Output Vital Signs (last 24 hours): Temp Pulse Resp BP Pulse Ox 98.5 F 67 19 104/61 95 09/23/17 07:44 09/23/17 07:44 09/23/17 07:44 09/23/17 07:44 09/23/17 07:44 - Medications Medications: Current Medications Acetaminophen (Tylenol 325mg Tab) 325 mg PO Q4 PRN PRN Reason: Pain, Mild (1-3) Enoxaparin Sodium (Lovenox) 40 mg SC DAILY JUSTIN PRN Reason: Protocol Last Admin: 09/23/17 10:01 Dose: 40 mg Hydromorphone HCl (Dilaudid) 0.5 mg IVP Q4 PRN PRN Reason: Pain, severe (8-10) Oxycodone/Acetaminophen (Percocet 5/325 Mg Tab) 2 tab PO Q4 PRN PRN Reason: Pain, moderate (4-7) Stop: 09/24/17 19:10 Last Admin: 09/23/17 05:58 Dose: 2 tab - Labs Labs: 09/21/17 21:40 09/21/17 13:15 PT 11.7 Seconds (9.8-13.1) 09/21/17 13:15 INR 1.1 (0.9-1.2) 09/21/17 13:15 APTT 32.8 Seconds (25.6-37.1) 09/21/17 13:15 - Constitutional Appears: Non-toxic, No Acute Distress - Head Exam Head Exam: ATRAUMATIC - Eye Exam Eye Exam: Normal appearance - ENT Exam ENT Exam: Mucous Membranes Moist - Respiratory Exam Respiratory Exam: Clear to Ausculation Bilateral, NORMAL BREATHING PATTERN. absent: Respiratory Distress - Cardiovascular Exam Cardiovascular Exam: REGULAR RHYTHM, +S1, +S2 - GI/Abdominal Exam GI & Abdominal Exam: Soft, Normal Bowel Sounds. absent: Tenderness - Extremities Exam Extremities Exam: Normal Capillary Refill. absent: Calf Tenderness, Pedal Edema Additional comments: RLE in posterior splint Sensation intact bilaterally Pt is able to wiggle all toes on RLE - Neurological Exam Neurological Exam: Alert, Awake Assessment and Plan - Assessment and Plan (Free Text) Assessment: 61 y/o F, POD 2 after ORIF of right ankle; needs PT. Plan: # ORIF of right ankle fracture- POD 2 - Yesterday pt refused pt due to pain - PT today - Pain management per podiatry - Post operative xray: Normal postoperative changes - Vitals and labs stable # Diet - Regular diet # DVT prophylaxis - Lovenox 40 mg SC daily - SCD
[2017-09-23] MEDS ORDERED: Iohexol 300 100 ML IJ ONE (16:07)
--- NOTE | 2017-09-23 17:20 | CT ---
PROCEDURE: CT Chest without contrast HISTORY: correlation to CXR read on admission COMPARISON: None. TECHNIQUE: Contiguous axial images were obtained through the chest without intravenous contrast enhancement. Sagittal and coronal reconstructions were performed. Radiation dose (DLP): 484.84 mGy-cm. This CT exam was performed using one or more of the following dose reduction techniques: Automated exposure control, adjustment of the mA and/or kV according to patient size, and/or use of iterative reconstruction technique. FINDINGS: LUNGS: No pulmonary infiltrate. Linear scar/ atelectasis in left lower lobe. No pulmonary mass identified. MEDIASTINUM: Unremarkable thoracic aorta. No aneurysm. Normal sized heart. Main pulmonary artery unremarkable. No vascular congestion. No lymphadenopathy. PLEURA: No pleural fluid. No pneumothorax. BONES: No fracture. No destructive lesion. UPPER ABDOMEN: Status post cholecystectomy OTHER FINDINGS: None. IMPRESSION: No pulmonary mass. The nodular opacity seen on plain chest radiography of 09/21/2017 was likely artifactual. Otherwise unremarkable. .
[2017-09-23] MEDS ORDERED: Docusate-Senna 50 mg-8.6 mg Tab PO ONE (19:07)
[2017-09-24 00:05] VITALS: O2SAT 95
[2017-09-24] MEDS ORDERED: POLYETHYLENE GLYCOL 3350 17 GM/Dose PACKET PO ONE (07:37)
[2017-09-24 08:14] VITALS: BP 96/61; PULSE 69; RESP 20; TEMP 98
[2017-09-24] MEDS: Enoxaparin 40 mg Syringe SC SCH (09:20)
--- NOTE | 2017-09-24 09:26 | CP.PCM.PN ---
Subjective - Date & Time of Evaluation Date of Evaluation: 09/24/17 Time of Evaluation: 08:30 - Subjective Subjective: Podiatry Progress Note- Dr. Craig 61 y.o female 3 days s/p right trimalleolar fracture ORIF is seen and evaluated at bedside. Patient is seen resting comfortably in bed, enjoying breakfast in the AM, appears in NAD, and AAOx3. Patient reports that today she is feeling much better. She says her pain comes and go. Right now her pain is 5/10. She points to the pain being along the medial and lateral ankle. Reports she is able to wiggle her toes and feel sensation. She denies nausea, shortness of breath, chest pain, chills or fever. She denies calf tenderness or pain. No new pedal complaints today. Objective - Vital Signs/Intake and Output Vital Signs (last 24 hours): Temp Pulse Resp BP Pulse Ox 98.0 F 69 20 96/61 L 95 09/24/17 08:13 09/24/17 08:13 09/24/17 08:13 09/24/17 08:13 09/24/17 08:13 - Medications Medications: Current Medications Acetaminophen (Tylenol 325mg Tab) 325 mg PO Q4 PRN PRN Reason: Pain, Mild (1-3) Enoxaparin Sodium (Lovenox) 40 mg SC DAILY JUSTIN PRN Reason: Protocol Last Admin: 09/24/17 09:20 Dose: 40 mg Oxycodone/Acetaminophen (Percocet 5/325 Mg Tab) 2 tab PO Q4 PRN PRN Reason: Pain, moderate (4-7) Stop: 09/24/17 19:10 Last Admin: 09/23/17 12:25 Dose: 2 tab - Labs Labs: 09/21/17 21:40 09/21/17 13:15 PT 11.7 Seconds (9.8-13.1) 09/21/17 13:15 INR 1.1 (0.9-1.2) 09/21/17 13:15 APTT 32.8 Seconds (25.6-37.1) 09/21/17 13:15 - Constitutional Appears: Well, Non-toxic, No Acute Distress - Extremities Exam Extremities Exam: absent: Calf Tenderness Additional comments: Vasc: DP and PT 2/4 bilaterally, CFT < 3 seconds x10 digits, moderate non pitting edema to the right ankle and foot, temperature gradient warm to warm from proximal knees to distal toes Ortho: moderate pain with palpation to right ankle, no pain with calf squeeze bilaterally, patient able to wiggle toes Neuro: protective and gross sensation intact Derm: ecchymosis noted to the dorsum of the foot, three surgical incisions located at medial malleolus, lateral malleolus, and anterior ankle with skin well co-apted and well approximately with sutures intact, with no knot slippage appreciated, no dehiscence noted, no drainage, mild erythema noted surrounding surgical site, no fluctuance, no purulence, no odor or clinical signs of infection noted; : Assessment and Plan - Assessment and Plan (Free Text) Assessment: 61 y.o female 3 days s/p right trimalleolar fracture ORIF- stable Plan: Patient examined and evaluated Discussed plan in detail with attending Dr. Craig Charts, labs, vitals reviewed Posterior splint and dressing changed; cleansed surgical site with saline solution, dressed surgical incisions with xeroform, dsd, and kerlix. Place Modified [place] with posterior splint. PT eval and treatment appreciated- Pt to be NWB to the right LE with crutches Continue to ice and elevate Patient stable per podiatry standpoint for discharge Upon discharge, -Patient will follow up in podiatry clinic Thursday with Dr. Craig -Patient will need to call for an appointment -Keep the posterior splint clean, dry, and intact. Do not get wet. -Educated RICE protocol -Nonweightbearing to the right leg. Use crutches to ambulate -Rx Keflex, take as instructed -Rx Percocet 5/325 for moderate-severe pain -Instructed to take baby aspirin 81mg for 5 days -Patient reports understanding
[2017-09-24] MEDS: Oxycodone/Acetaminophen 5/325 mg Tab PO PRN (11:53)
--- NOTE | 2017-09-25 23:55 | PCM.OP ---
Operative Report - Operative Report Date of Surgery/Procedure: 09/21/17 Time of Surgery/Procedure: 15:30 Surgeon: Dr. Craig Business Practices Officer: Mauricio Car PGY-3, Maximo Elaine PGY-3, Jayce Jones PGY-3 Anesthesia/Sedation: Gen LMA and Regional block Pre-Operative Diagnosis: Right ankle Trimalleolar fracture Post-Operative Diagnosis: Same Indication for Surgery: Indications: The patient is a 61 year-old F with the above diagnoses. The patient injured her right ankle 2 weeks ago and patient requests surgical intervention. The patient signed the consent after careful explanation of risks, benefits, complication and alternatives for surgical procedure. No guarantees were given nor implied. 2 grams Ancef IV were given to the pt hour prior to the procedure. NPO status was confirmed prior to taking pt to the OR. Operative Findings: Preparation: The patient was brought to the operating room and placed on the operating room table in supine position. A well-padded pneumatic Thigh tourniquet was placed to the patient's right Thigh. Once general anesthesia was achieved, the right lower extremity was then prepped and draped in usual sterile manner. Eshmarch was utilized to exsanguinate the patient's right lower extremity. Pneumatic Thigh tourniquet was then inflated to 350 mmHg and procedure began. Procedure/Operation Description: Attention was directed to the lateral aspect of right ankle and the fracture site was confirmed under the intra-operative fluoroscopy and spiral oblique fracture was confirmed. An approximately 7 cm linear longitudinal incision was made overlying fibular staying central right over the bone. At this time, the incision was carried deep using sharp and blunt dissection, taking care to retract all vital neurovascular structures. All bleeders were cauterized and ligated as necessary. At the level of the periosteum, a sharp periosteal incision was made overlying the distal fibula to allow exposure to the fracture site. The periosteum was reflected with a sharp preosteal elevator to allow for visualization of the fracture site at this time. At this time, Utilizing 2 bone clamps, the fracture site was reduced brining the distal fibula back out to length. At this time, two lag screws were placed from meagan-proximal to postero-distal with excellent fixation noted utilizing 2.7 x 16mm cortex screws. At this time, a Synthes 7 hole 3.5 mm LCP 1/ 3 tubular plate was placed over the fracture site and utilizing standard AO techniques and principles, holes were filled with two of 3.5 x 10 mm locking screws, 3.5 x 14 mm cortex screw, two of 3.5 x 12mm locking screws, and 3.5 x 14mm locking screw. At this time, multiple irrigations were performed. All the screw locations were confirmed under the intra operative fluoroscopy. At this time, 0.5 cc of DBM was applied to the deficit at the meagan-lateral aspect of the distal fibular. Attention was re-directed to the medial aspect of the distal tibia of the right lower extremity. Utilizing #15 blade, an approximately 4 cm curved linear incision was made overlying the tibia staying center right over the bone. At this time, the incision was carried deep using sharp and blunt dissection, taking care to retract all vital neurovascular structures. All bleeders were cauterized and ligated as necessary. At the level of the periosteum, a sharp periosteal incision was made overlying the distal tibia to allow exposure to the fracture site. The periosteum was reflected with a sharp preosteal elevator to allow for visualization of the fracture site at this time. At this time, Utilizing bone clamp, the fracture site was reduced brining the distal medial malleolus back out to length and was temporary fixated with a k wire. Next, based on AO technique and principles, the fracture site was fixed with two of 4.0 x 40mm cannulated screw. Next temporary fixated k wire was removed. The screw locations were confirmed under intraoperative fluoroscopy. The surgical site was irrigated with copious amount of normal sterile saline. Next, Utilizing #15 blade, approximately 2 cm linear longitudinal incision was made on the meagan-lateral aspect of the distal tibia and 0.5 cm above the ankle joint. Utilizing bone hook, posterior malleolar fracture was reduced at this time, two of k wires were inserted and fixated the fracture fragment temporally. Next, based on AO technique and principles, the fracture site was fixed with a 4.0 x 34mm and 38mm cannulated screws. Next temporary fixated k wires were removed. The screw locations were confirmed under intraoperative fluoroscopy. The surgical site was irrigated with copious amount of normal sterile saline. Deep tissues were reapproximated with #2-0 and #4-0 size vicryl and Skin was reapproximated with #4-0 Nylon. The surgical site was dressed with Xeroform, 4x4s, Kerlix. Posterior splint with cast pads were applied to the left lower extremity. The attending was present during the case. Estimated Blood Loss: 10cc Complications: None Discharge & Condition: The patient tolerated the anesthesia and procedure well and was escorted to the recovery room with vital signs stable and neurovascular status intact to the right ankle. This patient will follow up with
== END 2017-09-24 15:55 | disposition home or self-care (01) | DRG 219 ==
LOC: H.ER 11:49 → H.ERHOLD 13:01 → H.MEDSURG1 22:42
PROVIDERS: ADMIT Family Medicine Geriatric Medicine; ATTEND Family Medicine Geriatric Medicine
PROC: 3E0T33Z Introduction of Anti-inflammatory into Peripheral Nerves and Plexi, Percutaneous Approach (ICD-10-PCS; 2017-09-21)
PROC: 0QHJ04Z Insertion of Internal Fixation Device into Right Fibula, Open Approach (ICD-10-PCS; principal; 2017-09-21 15:30)
PROC: 0QHG04Z Insertion of Internal Fixation Device into Right Tibia, Open Approach (ICD-10-PCS; 2017-09-21 15:30)
PROC: 3E0T3BZ Introduction of Anesthetic Agent into Peripheral Nerves and Plexi, Percutaneous Approach (ICD-10-PCS; 2017-09-21 15:30)
DX: S82.851A Displaced trimalleolar fracture of right lower leg, initial encounter for closed fracture (principal); K29.50 Unspecified chronic gastritis without bleeding; M85.862 Other specified disorders of bone density and structure, left lower leg; M85.861 Other specified disorders of bone density and structure, right lower leg; K59.09 Other constipation; W00.0XXA Fall on same level due to ice and snow, initial encounter; Z79.1 Long term (current) use of non-steroidal anti-inflammatories (NSAID); Y92.480 Sidewalk as the place of occurrence of the external cause

== ENCOUNTER 2018-11-09 11:36 | Emergency (ER) | payer OTHER, SELFPAY ==
[2018-11-09 12:03] VITALS: BP 117/78; PULSE 66; RESP 18; TEMP 97; O2SAT 98; BMI 29.5
--- NOTE | 2018-11-09 12:32 | ED PDOC ---
Lower Extremity Pain/Injury Time Seen by Provider: 11/09/18 12:17 Chief Complaint (Nursing): Lower Extremity Problem/Injury Chief Complaint (Provider): Right foot pain History Per: Patient History/Exam Limitations: no limitations Additional Complaint(s): 63 y/o F with hx of Right ankle surgery in 09/2017 who presents with worsening Right foot pain for the past 5 days. Pt states that she has had Right heel and ankle pain since surgery in 09/2017. She had an injection approximately 2 months ago that improved pain for one month but the heel and ankle pain returned. The pain has gotten worse over the past 5 days. Pt has been taking Tylenol with minimal improvement and states that the pain is worse with initiation of standing, now rated 8/10 on pain scale. Denies trauma, numbness or tingling. Past Medical History Reviewed: Historical Data, Nursing Documentation, Vital Signs Vital Signs: Last Vital Signs Temp 97 F L 11/09/18 12:02 Pulse 66 11/09/18 12:02 Resp 18 11/09/18 12:02 BP 117/78 11/09/18 12:02 Pulse Ox 98 11/09/18 12:08 Primary Care Provider: FAMILY PROVIDER,NO - Medical History PMH: No Chronic Diseases Denies: Kidney Stones, Chronic Kidney Disease - Surgical History Surgical History: Appendectomy, Cholecystectomy - Family History Family History: States: Unknown Family Hx - Home Medications Home Medications: Ambulatory Orders Medication Instructions Recorded Cephalexin [Keflex] 500 mg PO BID #14 capsule 09/24/17 Docusate Sodium/Sennosides A 2 tab PO HS #30 tab 09/24/17 [Senokot S 50 MG-8.6 MG] oxyCODONE/Acetaminophen [Percocet 1 tab PO Q4 PRN #30 tab 09/24/17 5/325 mg Tab] Naproxen 500 mg PO BID PRN 7 Days tab 11/09/18 - Allergies Allergies/Adverse Reactions: Allergies Allergy/AdvReac Type Severity Reaction Status Date / Time No Known Allergies Allergy Verified 11/09/18 12:08 Review of Systems Musculoskeletal: Positive for: Foot Pain Physical Exam - Reviewed Nursing Documentation Reviewed: Yes Vital Signs Reviewed: Yes - Physical Exam Appears: Positive for: Well Extremity: Positive for: Normal ROM (with flexion and extension of Right ankle and toes. No ecchymosis or erythema. ), Tenderness (tenderness on palpation of posterolateral aspect of Right ankle. ), Capillary Refill (< 2 sec), Swelling (mild swelling at lateral aspect of Right ankle). Negative for: Deformity Neurological/Psych: Positive for: Awake, Alert, Oriented - ECG O2 Sat by Pulse Oximetry: 98 Medical Decision Making Medical Decision Making: Podiatry consult Right foot x-ray Toradol 30mg IM x 1 Right foot x-ray read by me: no acute pathology Podiatry saw patient. Likely Plantar fasciitis. Pt to follow up in Podiatry clinic within one week to discuss possibility fo recurrent steroid injection or removal of hardware if causing pain. Patient demonstrated understanding. Disposition - Clinical Impression Clinical Impression: Ankle pain, Plantar fasciitis - Patient ED Disposition Is Patient to be Admitted: No Counseled Patient/Family Regarding: Studies Performed, Diagnosis, Need For Follo wup - Disposition Referrals: Podiatry Clinic [Outside] Disposition: Routine/Home Disposition Time: 13:42 Condition: STABLE Additional Instructions: Follow up in Podiatry clinic in one week (call for appointment with Dr. Craig) to discuss another injection or removal of your screws. Take Naproxen as needed for pain. Rest as much as possible for the next few days but you can walk on it. Elevate and ice your heel when you get home. Return to ER with worse muna symptoms. Prescriptions: Naproxen 500 mg PO BID PRN 7 Days tab PRN Reason: Pain, Moderate (4-7) Instructions: Heel Pain (Caused by Plantar Fasciitis) (DC) Forms: [employer] ([place]), [facility] ED School/Work Excuse Print Language: FAROESE
--- NOTE | 2018-11-09 13:36 | CP.PCM.CON ---
History of Present Illness - History of Present Illness History of Present Illness: Podiatry consult note for Dr. Craig 63 y/o F with hx of Right ankle surgery in 09/2017 seen and evaluated for right plantar foot pain. Patient states pain started 5 days ago and pain with first step in the morning. She had an injection approximately 2 months ago that improved pain for one month but the heel and ankle pain returned. Pt has been taking Tylenol with minimal improvement and states that the pain is worse with initiation of standing, now rated 8/10 on pain scale. Review of Systems - Review of Systems All systems: reviewed and no additional remarkable complaints except Review of Systems: As per HPI Past Patient History - Infectious Disease Hx of Infectious Diseases: None - Past Medical History & Family History Past Medical History?: No - Past Social History Smoking Status: Never Smoked - CARDIAC Hx Cardiac Disorders: No - PULMONARY Hx Respiratory Disorders: No - NEUROLOGICAL Hx Neurological Disorder: No - HEENT Hx HEENT Problems: No - RENAL Hx Chronic Kidney Disease: No Hx Kidney Stones: No - ENDOCRINE/METABOLIC Hx Endocrine Disorders: No - HEMATOLOGICAL/ONCOLOGICAL Hx Blood Disorders: No - INTEGUMENTARY Hx Dermatological Problems: No - MUSCULOSKELETAL/RHEUMATOLOGICAL Hx Musculoskeletal Disorders: No - GASTROINTESTINAL Hx Gastrointestinal Disorders: No - GENITOURINARY/GYNECOLOGICAL Hx Genitourinary Disorders: No - PSYCHIATRIC Hx Psychophysiologic Disorder: No Hx Emotional Abuse: No Hx Physical Abuse: No Hx Substance Use: No - SURGICAL HISTORY Hx Appendectomy: Yes Hx Cholecystectomy: Yes Meds Home Medications: Home Medication List Medication Instructions Recorded Confirmed Type Naproxen 500 mg PO BID PRN 7 Days tab 11/09/18 Rx Allergies/Adverse Reactions: Allergies Allergy/AdvReac Type Severity Reaction Status Date / Time No Known Allergies Allergy Verified 11/09/18 12:08 Physical Exam - Constitutional Appears: Well, Non-toxic, No Acute Distress - Head Exam Head Exam: ATRAUMATIC, NORMOCEPHALIC - Extremities Exam Additional comments: Vasc: DP and PT 2/4 bilaterally, CFT < 3 seconds x10 digits, minimal non pitting edema to the right ankle and foot, temperature gradient warm to warm from proximal knees to distal toes Ortho: moderate pain with palpation to right plantar heel, pain at the hardware- palpable, no pain with calf squeeze bilaterally, patient able to wiggle toes Neuro: protective and gross sensation intact Derm: no wounds, previous healed scars, no drainage, no clinical signs of infection noted - Neurological Exam Neurological exam: Alert, Oriented x3 - Psychiatric Exam Psychiatric exam: Normal Affect, Normal Mood Results - Vital Signs Recent Vital Signs: Last Vital Signs Temp 97 F L 11/09/18 12:02 Pulse 66 11/09/18 12:02 Resp 18 11/09/18 12:02 BP 117/78 11/09/18 12:02 Pulse Ox 98 11/09/18 12:32 Assessment & Plan - Assessment and Plan (Free Text) Assessment: 63 y/o female patient seen and evaluated for right heel pain Plan: Patient examined and evaluated Discussed plan in detail with attending Dr. Craig Charts, labs, vitals reviewed Patient X-rays normal, hardware intact Continue to ice and elevate Patient will follow up in podiatry clinic Thursday with Dr. Craig Weight bearing as tolerated to the right leg. Provided with Surgical shoe Patient reports understanding Rx Naprosyn for pain as needed - Date & Time Date: 11/09/18 Time: 13:37
--- NOTE | 2018-11-09 15:06 | RAD ---
Date of service: 11/09/2018 PROCEDURE: Right Foot Radiographs. HISTORY: worsening Right heel pain COMPARISON: Right ankle radiographs 01/20/2018. TECHNIQUE: 3 views obtained. FINDINGS: BONES: No acute fracture. No destructive bony lesion identified. Prior ORIF distal right fibula as well as distal tibia reiterated. JOINTS: No subluxation or dislocation. Limited degenerative joint disease seen throughout the interphalangeal joints and 1st metatarsophalangeal joint as well as hindfoot and ankle joints diffusely. SOFT TISSUES: Normal. OTHER FINDINGS: None. IMPRESSION: No acute fracture or dislocation identified. Prior ORIF again seen at the right ankle with limited ankle/hindfoot and forefoot degenerative changes noted as discussed above.
== END 2018-11-09 13:42 | disposition home or self-care (01) ==
LOC: H.ER 11:36
DX: M72.2 Plantar fascial fibromatosis (principal)
CPT/HCPCS: 73630; 96372; 99283; J1885

== ENCOUNTER 2018-11-20 12:44 | Emergency (ER) | payer OTHER ==
[2018-11-20 12:50] VITALS: BP 148/86; PULSE 59; RESP 16; TEMP 97.7; O2SAT 97; BMI 29.2
[2018-11-20] MEDS ORDERED: Alum-Mag Hydrox-Simethicone Susp (30 mL) PO STA (13:30)
--- NOTE | 2018-11-20 13:42 | ED PDOC ---
HPI: Abdomen Time Seen by Provider: 11/20/18 13:09 Chief Complaint (Nursing): Abdominal Pain Chief Complaint (Provider): Abdominal Pain History Per: Patient History/Exam Limitations: no limitations Onset/Duration Of Symptoms: Days (x5) Current Symptoms Are (Timing): Still Present Additional Complaint(s): 63 year old female with medical history of gastritis and H. pylori infection, presents to the emergency department with a complaint of non-radiating, upper abdominal pain exacerbated with eating for the past 5 days. She reports additional nausea with 4 similar episodes in the past. Patient was recommended Omeprazole but stopped use recently as she felt it did not help. She denies any vomiting, diarrhea, constipation, black or bloody stools. Of note, patient was seen in ED on 11/09/18 for foot pain then discharged with Naproxen, in which, she expresses concern that the medication may have exacerbated her gastritis. Past Medical History Reviewed: Historical Data, Nursing Documentation, Vital Signs Vital Signs: Last Vital Signs Temp 97.7 F 11/20/18 12:49 Pulse 59 L 11/20/18 12:49 Resp 16 11/20/18 12:49 BP 148/86 11/20/18 12:49 Pulse Ox 97 11/20/18 12:49 Primary Care Provider: Non [facility] Provider, ([facility]) - Medical History PMH: Gastritis Denies: Kidney Stones, Chronic Kidney Disease Other PMH: H. pylori infection - Surgical History Surgical History: Appendectomy, Cholecystectomy Other surgeries: right ankle - Family History Family History: States: Hypertension - Social History Current smoker - smoking cessation education provided: No Alcohol: None Drugs: Denies - Home Medications Home Medications: Ambulatory Orders Medication Instructions Recorded Cephalexin [Keflex] 500 mg PO BID #14 capsule 09/24/17 Docusate Sodium/Sennosides A 2 tab PO HS #30 tab 09/24/17 [Senokot S 50 MG-8.6 MG] oxyCODONE/Acetaminophen [Percocet 1 tab PO Q4 PRN #30 tab 09/24/17 5/325 mg Tab] Naproxen 500 mg PO BID PRN 7 Days tab 11/09/18 Dicyclomine [Bentyl] 20 mg PO QID PRN #20 tab 11/20/18 Famotidine [Pepcid] 40 mg PO DAILY PRN #30 tab 11/20/18 Lidocaine 5% [Lidoderm] 1 ea TD DAILY PRN #10 patch 11/20/18 Ondansetron ODT [Zofran ODT] 1 odt PO Q6 PRN #20 odt 11/20/18 - Allergies Allergies/Adverse Reactions: Allergies Allergy/AdvReac Type Severity Reaction Status Date / Time No Known Allergies Allergy Verified 11/09/18 12:08 Review of Systems ROS Statement: Except As Marked, All Systems Reviewed And Found Negative Gastrointestinal: Positive for: Nausea, Abdominal Pain (upper). Negative for: Vomiting, Diarrhea, Constipation, Melena, Hematochezia Physical Exam - Reviewed Nursing Documentation Reviewed: Yes Vital Signs Reviewed: Yes - Physical Exam Appears: Positive for: Non-toxic, In Acute Distress (mildly painful) Head Exam: Positive for: ATRAUMATIC, NORMOCEPHALIC Skin: Positive for: Warm, Dry Eye Exam: Positive for: EOMI, PERRL ENT: Negative for: Pharyngeal Erythema, Tonsillar Exudate Neck: Positive for: Painless ROM, Supple Cardiovascular/Chest: Positive for: Regular Rate, Rhythm. Negative for: Murmur Respiratory: Positive for: Normal Breath Sounds. Negative for: Respiratory Distress Gastrointestinal/Abdominal: Positive for: Soft, Tenderness (epigastric). Negative for: Mass, Distended, Guarding, Rebound, Other ((-) McBurney's point and (-) Guzman's sign) Back: Positive for: Normal Inspection. Negative for: Decreased ROM Extremity: Positive for: Normal ROM. Negative for: Deformity Lymphatic: Negative for: Adenopathy Neurological/Psych: Positive for: Awake, Alert. Negative for: Motor/Sensory Def icits - Laboratory Results Result Diagrams: 11/20/18 13:54 11/20/18 13:54 - ECG O2 Sat by Pulse Oximetry: 97 (RA) Pulse Ox Interpretation: Normal Medical Decision Making Medical Decision Making: Initial Impression: gastritis Differential diagnosis includes but not limited to: dyspepsia; reflux; pancreatitis Initial Plan: * Labs * Lidocaine 2% viscous PO * Maalox plus 30 PO * Pepcid PO 230p Labs with mild elevation of transaminases otherwise normal. On reeval pt feels better. ------- Scribe Attestation: Documented by Pam Anaya, acting as a scribe for Leila Dumont MD. Provider Scribe Attestation: All medical record entries made by the Scribe were at my direction and personally dictated by me. I have reviewed the chart and agree that the record accurately reflects my personal performance of the history, physical exam, medical decision making, and the department course for this patient. I have also personally directed, reviewed, and agree with the discharge instructions and disposition. Disposition - Clinical Impression Clinical Impression: Gastritis, Abdominal pain Counseled Patient/Family Regarding: Studies Performed, Diagnosis, Need For Followup, Rx Given - Disposition Referrals: [facility] [Outside] Podiatry Clinic [Outside] Disposition: Routine/Home Disposition Time: 14:00 Condition: STABLE Additional Instructions: [facility] Prescriptions: Dicyclomine [Bentyl] 20 mg PO QID PRN #20 tab PRN Reason: abdominal pain Famotidine [Pepcid] 40 mg PO DAILY PRN #30 tab PRN Reason: reflux Lidocaine 5% [Lidoderm] 1 ea TD DAILY PRN #10 patch PRN Reason: PAIN Ondansetron ODT [Zofran ODT] 1 odt PO Q6 PRN #20 odt PRN Reason: Nausea/Vomiting Instructions: Acute Abdomen (Belly Pain), Adult (DC), Gastritis (DC) Print Language: KOREAN
[2018-11-20] MEDS ORDERED: Alum-Mag Hydrox-Simethicone Susp (30 mL) ONE (13:56)
[2018-11-20 13:59] LABS: BASO % 0.6 % (0.0-2.0); EOS # 0.1 K/uL (0.0-0.7); EOS % 3.2 % (0.0-4.0); HEMOGLOBIN 13.3 g/dL (12.0-16.0); LYMPH # 1.3 K/uL (1.0-4.3); LYMPH % 33.9 % (20.0-40.0); MEAN CELL VOLUME 91.5 fl (81.0-99.0); MEAN CORPUSCULAR HEMOGLOBIN 31.3 pg (27.0-31.0); MEAN CORPUSCULAR HGB CONC 34.2 g/dL (33.0-37.0); MEAN PLATELET VOLUME 10.8 fl (7.2-11.7); MONO # 0.3 K/uL (0.0-0.8); MONO % 8.8 % (0.0-10.0); NEUT # 2.1 K/uL (1.8-7.0); NEUT % 53.5 % (50.0-75.0); NRBC % 0.1 % (0.0-0.0); RBC 4.25 Mil/uL (3.80-5.20); RED CELL DISTRIBUTION WIDTH 12.9 % (11.5-14.5); WHITE BLOOD COUNT 3.9 K/uL (4.8-10.8)
[2018-11-20 14:14] LABS: ALB/GLOB RATIO 1.4 (1.0-2.1); ALBUMIN 4.2 g/dL (3.5-5.0); ALT/SGPT 263 U/L (9-52); AST/SGOT 222 U/L (14-36); BLOOD UREA NITROGEN 16 mg/dl (7-17); CALCIUM 8.8 mg/dL (8.4-10.2); GFR NON-AFRICAN AMERICAN > 60; LIPASE 70 U/L (23-300)
== END 2018-11-20 15:25 | disposition home or self-care (01) ==
LOC: H.ER 12:44
DX: K29.70 Gastritis, unspecified, without bleeding (principal); R10.9 Unspecified abdominal pain